=== PATIENT | female | born 2000 | race Caucasian/White ===

== ENCOUNTER 2019-06-14 01:31 | Emergency (ER) | payer BC, OTHER ==
[~2019-06-14] VITALS: Ht 170 cm; Wt 90.0 kg
[2019-06-14 02:54] LABS: BASOPHILS # (AUTO) 0.1 10^3/uL (0.0-0.1); BASOPHILS % (AUTO) 1 % (0-10); EOSINOPHILS # (AUTO) 0.2 10^3/uL (0.0-0.3); EOSINOPHILS % (AUTO) 2 % (0-10); HEMATOCRIT 41 % (35-52); HEMOGLOBIN 14.3 G/DL (11.5-16.0); LYMPHOCYTES # (AUTO) 3.6 X 10^3 (1.0-4.0); LYMPHOCYTES % (AUTO) 34 % (12-44); MEAN CORPUSCULAR HEMOGLOBIN 27 PG (25-34); MEAN CORPUSCULAR HGB CONC 35 G/DL (32-36); MEAN CORPUSCULAR VOLUME 79 FL (80-99); MEAN PLATELET VOLUME 9.9 FL (7.4-10.4); MONOCYTES # (AUTO) 0.8 X 10^3 (0.0-1.0); MONOCYTES % (AUTO) 8 % (0-12); NEUTROPHILS # (AUTO) 5.8 X 10^3 (1.8-7.8); NEUTROPHILS % (AUTO) 56 % (42-75); PLATELET COUNT 272 10^3/uL (130-400); RED CELL DISTRIBUTION WIDTH 14.3 % (10.0-14.5); WHITE BLOOD COUNT 10.4 10^3/uL (4.3-11.0)
[2019-06-14 03:04] LABS: BILIRUBIN,URINE NEGATIVE (NEGATIVE); CLARITY,URINE CLEAR; COLOR,URINE YELLOW; GLUCOSE, URINE (UA) NEGATIVE (NEGATIVE); KETONES,URINE NEGATIVE (NEGATIVE); LEUKOCYTE ESTERASE ,URINE NEGATIVE (NEGATIVE); NITRITE,URINE NEGATIVE (NEGATIVE); PROTEIN,URINE NEGATIVE (NEGATIVE)
[2019-06-14 03:05] LABS: ALANINE AMINOTRANSFERASE 17 U/L (0-55); ALBUMIN 4.5 GM/DL (3.2-4.5); ALKALINE PHOSPHATASE 66 U/L (40-136); AMYLASE 48 U/L (25-125); BILIRUBIN,TOTAL 0.7 MG/DL (0.1-1.0); BUN/CREATININE RATIO 11; CALCIUM 9.5 MG/DL (8.5-10.1); CARBON DIOXIDE 21 MMOL/L (21-32); CHLORIDE 109 MMOL/L (98-107); CREATININE SERUM 0.89 MG/DL (0.60-1.30); GFR ESTIMATED > 60; GLUCOSE 123 MG/DL (70-105); MAGNESIUM 1.7 MG/DL (1.6-2.4); POTASSIUM 3.2 MMOL/L (3.6-5.0); SODIUM 142 MMOL/L (135-145); TOTAL PROTEIN 7.2 GM/DL (6.4-8.2)
[2019-06-14 03:23] LABS: BACTERIA,URINE MODERATE /HPF; SQUAMOUS EPITHELIAL CELL,UR 0-2 /HPF
[2019-06-14] MEDS ORDERED: LACTATED RINGERS 1,000 ML IV ONE (03:26)
[2019-06-14] MEDS ORDERED: NS 100 ML (IVPB) BAG IV ONE (04:00)
[2019-06-14] MEDS ORDERED: HOLD METFORMIN - RECEIVED CONTRAST 20 ML VIAL IV SCH (04:00)
[2019-06-14] MEDS ORDERED: IOHEXOL 350 MG/ML 100 ML (OMNIPAQUE 350) VIAL IV ONE (04:00)
[2019-06-14] MEDS ORDERED: KETOROLAC 30 MG/ML VIAL IVP ONE (04:00)
[2019-06-14] MEDS ORDERED: ONDANSETRON 4 MG/2 ML (SDV) Z0FRAN IVP ONE (04:00)
--- NOTE | 2019-06-14 04:42 | ED Abdominal Pain ---
General Chief Complaint: Abdominal/GI Problems Stated Complaint: ABD PAIN, VOMIITNG, FEVER Source of Information: Patient History of Present Illness Date Seen by Provider: Jun 14, 2019 Time Seen by Provider: 02:40 Initial Comments PT ARRIVES VIA POV WITH FEMALE FRIENDS PT STATES "JUST MY APPENDIX IS BUGGING ME" C/O RLQ PAIN SINCE 1999 TONIGHT STATES PAIN BEGAN WHILE AT A [employer] TONIGHT STATES PAIN WAS IN EPIGASTRIC AREA INITIALLY AND WAS SHARP, AND PAIN HAS MOVED AROUND AND NOW IS IN RLQ AND IS JUST A DULL ACHE 30 MINUTES PRIOR TO ARRIVAL, SHE HAD NAUSEA AND VOMITED X 1--NO NAUSEA NOW ATE MEAL AT [employer] AT 0030 --DID NOT MAKE SYMPTOMS WORSE STATES LEANING ON HER RIGHT SIDE WORSENS PAIN, OTHERWISE NOTHING ELSE WORSENS PAIN. NOTHING IMPROVES PAIN, BUT HAS NOT TAKEN ANYTHING FOR PAIN. HAD DIARRHEA X 2-3 YESTERDAY BUT ATTRIBUTES THAT TO DRINKING HEAVILY THE NIGHT BEFORE. DENIES ANY ETOH TONIGHT NO URINARY SYMPTOMS NO VAGINAL DISCHARGE OR SPECIALTY FOODS COOK COMPLAINTS--LMP 1-2 WEEKS AGO, NORMAL. ON OCP'S STATES SHE HAD FEVER LAST SATURDAY AND WAS HAVING COLD SYMPTOMS AT THAT TIME, BUT NONE SINCE AND THOSE SYMPTOMS HAVE RESOLVED. STATES "I WAS HAVING APPENDIX PROBLEMS THIS SUMMER AND MY FRIEND'S SISTER IS A NURSE AND SHE TOLD ME IT HAD FOR SURE RUPTURED" --NEVER SOUGHT CARE AT ANY TIME. PCP: [facility] FROM [place], [place] Allergies and Home Medications Allergies Coded Allergies: No Known Drug Allergies (Unverified , 06/14/19) Home Medications Ketorolac Tromethamine 10 Mg Tablet, 10 MG PO Q6H Prescribed by: EMRE BRODY on 06/14/19523 Ondansetron 4 Mg Tab.rapdis, 4 MG PO Q4H Prescribed by: EMRE BRODY on 06/14/19523 Patient Home Medication List Home Medication List Reviewed: Yes Review of Systems Review of Systems Constitutional: no symptoms reported; No fever EENTM: No Symptoms Reported, See HPI Respiratory: No Symptoms Reported; Denies Cough Cardiovascular: No Symptoms Reported Gastrointestinal: See HPI, Abdominal Pain, Diarrhea, Nausea; Denies Poor Appetite, Denies Poor Fluid Intake; Vomiting Genitourinary: No Symptoms Reported; Denies Burning, Denies Discharge, Denies Drainage, Denies Frequency, Denies Flank Pain, Denies Hematuria, Denies Incontinence, Denies Pain, Denies Urgency Musculoskeletal: no symptoms reported; No back pain Skin: no symptoms reported Psychiatric/Neurological: No Symptoms Reported Endocrine: No Symptoms Reported Hematologic/Lymphatic: No Symptoms Reported Past Zdqquse-Cfsitd-Vqelrb Hx Patient Social History Alcohol Use: Regular Use (ONCE AWEEK) Recreational Drug Use: No Smoking Status: Never a Smoker Recent Foreign Travel: No Contact w/Someone Who Travel: No Recent Hopitalizations: No Physical Abuse: No Sexual Abuse: No Mistreated: No Fear: No Seasonal Allergies Seasonal Allergies: No Past Medical History Surgeries: No Respiratory: No Cardiac: No Neurological: No Reproductive Disorders: No Genitourinary: No Gastrointestinal: No Musculoskeletal: No Endocrine: No HEENT: No Cancer: No Psychosocial: No Integumentary: No Blood Disorders: No Physical Exam Vital Signs Vital Signs - First Documented 06/14/19 02:01 Temp 36.6 Pulse 81 Resp 20 B/P (MAP) 144/85 O2 Delivery Room Air Capillary Refill : Height/Weight/BMI Height: '" Weight: lbs. oz. kg; BMI Method: General Appearance: WD/WN, no apparent distress, other (SMILING, VERY TALKATIVE, WALKS UPRIGHT AND MOVES QUICKLY WITHOUT DIFFICULTY. DOES NOT APPEAR TO BE IN ANY DISCOMFORT OR DISTRESS. ) Neck: normal inspection Respiratory: normal breath sounds, no respiratory distress, no accessory muscle use Cardiovascular: regular rate, rhythm, no murmur Gastrointestinal: normal bowel sounds, soft, no organomegaly, no pulsatile mass; No distended, No guarding, No rebound; tenderness (MILD EPIGASTRIC TENDERNESS, MILD RLQ TENDERNESS, MILD SUPRAPUBIC TENDERNESS); No hernia, No mass Extremities: normal inspection Back: normal inspection, no CVA tenderness Neurologic/Psychiatric: package drier II-XII nml as tested, no motor/sensory deficits, alert, normal mood/affect, oriented x 3 Skin: normal color, warm/dry; No rash Progress/Results/Core Measures Results/Orders Lab Results Laboratory Tests Test 06/14/19 02:15 06/14/19 02:17 Range/Units White Blood Count 10.4 4.3-11.0 10^3/uL Red Blood Count 5.22 4.35-5.85 10^6/uL Hemoglobin 14.3 11.5-16.0 G/DL Hematocrit 41 35-52 % Mean Corpuscular Volume 79 L 80-99 FL Mean Corpuscular Hemoglobin 27 25-34 PG Mean Corpuscular Hemoglobin Concent 35 32-36 G/DL Red Cell Distribution Width 14.3 10.0-14.5 % Platelet Count 272 130-400 10^3/uL Mean Platelet Volume 9.9 7.4-10.4 FL Neutrophils (%) (Auto) 56 42-75 % Lymphocytes (%) (Auto) 34 12-44 % Monocytes (%) (Auto) 8 0-12 % Eosinophils (%) (Auto) 2 0-10 % Basophils (%) (Auto) 1 0-10 % Neutrophils # (Auto) 5.8 1.8-7.8 X 10^3 Lymphocytes # (Auto) 3.6 1.0-4.0 X 10^3 Monocytes # (Auto) 0.8 0.0-1.0 X 10^3 Eosinophils # (Auto) 0.2 0.0-0.3 10^3/uL Basophils # (Auto) 0.1 0.0-0.1 10^3/uL Sodium Level 142 135-145 MMOL/L Potassium Level 3.2 L 3.6-5.0 MMOL/L Chloride Level 109 H 98-107 MMOL/L Carbon Dioxide Level 21 21-32 MMOL/L Anion Gap 12 5-14 MMOL/L Blood Urea Nitrogen 10 7-18 MG/DL Creatinine 0.89 0.60-1.30 MG/DL Estimat Glomerular Filtration Rate > 60 BUN/Creatinine Ratio 11 Glucose Level 123 H 70-105 MG/DL Calcium Level 9.5 8.5-10.1 MG/DL Corrected Calcium 9.1 8.5-10.1 MG/DL Magnesium Level 1.7 1.6-2.4 MG/DL Total Bilirubin 0.7 0.1-1.0 MG/DL Aspartate Amino Transf (AST/SGOT) 15 5-34 U/L Alanine Aminotransferase (ALT/SGPT) 17 0-55 U/L Alkaline Phosphatase 66 40-136 U/L Total Protein 7.2 6.4-8.2 GM/DL Albumin 4.5 3.2-4.5 GM/DL Amylase Level 48 25-125 U/L Serum Test, Qualitative NEGATIVE NEGATIVE Urine Color YELLOW Urine Clarity CLEAR Urine pH 6.0 5-9 Urine Specific [place] >=1.030 1.016-1.022 Urine Protein NEGATIVE NEGATIVE Urine Glucose (UA) NEGATIVE NEGATIVE Urine Ketones NEGATIVE NEGATIVE Urine Nitrite NEGATIVE NEGATIVE Urine Bilirubin NEGATIVE NEGATIVE Urine Urobilinogen 0.2 < = 1.0 MG/DL Urine Leukocyte Esterase NEGATIVE NEGATIVE Urine RBC (Auto) NEGATIVE NEGATIVE Urine RBC NONE /HPF Urine WBC NONE /HPF Urine Squamous Epithelial Cells 0-2 /HPF Urine Crystals NONE /LPF Urine Bacteria MODERATE H /HPF Urine Casts NONE /LPF Urine Mucus NEGATIVE /LPF Urine Culture Indicated NO My Orders Orders - EMRE BRODY DO Ed Iv/Invasive Line Start (06/14/19 02:43) Amylase (06/14/19 02:43) Cbc With Automated Diff (06/14/19 02:43) Comprehensive Metabolic Panel (06/14/19 02:43) Hcg,Qualitative Serum (06/14/19 02:43) Magnesium (06/14/19 02:43) Ua Culture If Indicated (06/14/19 02:43) Ct Abd/Pelv W (Appendicitis) (06/14/19 03:26) Acute Abd Series (06/14/19 03:26) Ed Iv/Invasive Line Start (06/14/19 03:26) Ed Iv/Invasive Line Start (06/14/19 03:26) Lactated Ringers (Lr 1000 Ml Iv Solution (06/14/19 03:26) Ondansetron Injection (Zofran Injectio (06/14/19 04:00) Ketorolac Injection (Toradol Injection) (06/14/19 04:00) Iohexol Injection (Omnipaque 350 Mg/Ml 1 (06/14/19 04:00) Received Contrast (Hold Metformin- Contr (06/14/19 04:00) Ns (Ivpb) (Sodium Chloride 0.9% Ivpb Bag (06/14/19 04:00) Medications Given in ED Current Medications Medications Dose Ordered Sig/Veronika Route Start Time Stop Time Status Last Admin Dose Admin Iohexol 100 ml ONCE ONCE IV 06/14/19 04:00 06/14/19 04:02 DC 06/14/19 04:02 100 ML Ketorolac Tromethamine 30 mg ONCE ONCE IVP 06/14/19 04:00 06/14/19 04:01 DC 06/14/19 04:21 30 MG Lactated Ringer's 1,000 ml @ 0 mls/hr Q0M ONCE IV 06/14/19 03:26 06/14/19 03:28 DC 06/14/19 03:41 1,000 MLS/HR Ondansetron HCl 4 mg ONCE ONCE IVP 06/14/19 04:00 06/14/19 04:01 DC 06/14/19 04:21 4 MG Sodium Chloride 100 ml ONCE ONCE IV 06/14/19 04:00 06/14/19 04:02 DC 06/14/19 04:03 80 ML Vital Signs/I&O 06/14/19 02:01 Temp 36.6 Pulse 81 Resp 20 B/P (MAP) 144/85 O2 Delivery Room Air Progress Progress Note : Progress Note LAUGHING WITH FRIENDS THROUGHOUT ER STAY GIVEN ZOFRAN AND TORADOL --PAIN FREE AT DISMISSAL. AT DISMISSAL STATES, "IT ONLY REALLY WAS HURTING WHEN I WOULD BREATHE OUT". Diagnostic Imaging Comments ABDOMEN XRAYS--NO ACUTE PROCESS, PENDING RADIOLOGIST REVIEW CT ABDOMEN/PELVIS--NO ACUTE PROCESS, PER [facility] VIA FAX AT [id number] Reviewed: Reviewed by Me Departure Impression Primary Impression: RLQ abdominal pain Disposition: HOME, SELF-CARE Condition: Improved Departure-Patient Inst. Referrals: NO,LOCAL PHYSICIAN (PCP) Primary Care Physician NAEL SAXENA MD Patient Instructions: Acute Abdomen (Belly Pain), Child (DC) Add. Discharge Instructions: LOTS OF CLEAR LIQUIDS--WATER, BROTH, JELLO, GATORADE NO ALCOHOL BLAND DIET--RICE, TOAST, SALTINES, APPLESAUCE FOLLOW UP WITH [facility] IN 2-3 DAYS IF NO BETTER All discharge instructions reviewed with patient and/or family. Voiced understanding. Scripts Ketorolac Tromethamine (Ketorolac Tromethamine) 10 Mg Tablet 10 MG PO Q6H for Pain, #8 TAB Prov: EMRE BRODY DO 06/14/19 Ondansetron (Ondansetron Odt) 4 Mg Tab.rapdis 4 MG PO Q4H for Nausea/Vomiting, #10 TAB Prov: EMRE BRODY DO 06/14/19 EMRE BRODY DO Jun 14, 2019 04:42 POS
[2019-06-14] MEDS ORDERED: KETO10TA PO (05:24)
[2019-06-14] MEDS ORDERED: ONDA4TAB11 PO (05:24)
--- NOTE | 2019-06-14 06:35 | Diagnostic Imaging Report ---
PROCEDURE: CT abdomen and pelvis with contrast, rule out appendicitis. TECHNIQUE: Multiple contiguous axial images were obtained through the abdomen and pelvis after the administration of intravenous contrast. INDICATION: Abdominal pain, vomiting, and fever FINDINGS: The liver, gallbladder, bile ducts, spleen, adrenals, and pancreas unremarkable. The unobstructed kidneys nonfocal and nonacute. The air-containing appendix is visualized off the caudal pole of the cecum and appeared normal. The uterus, adnexa and urinary bladder unremarkable. There is no diverticulitis. There is no bowel, biliary or urinary tract obstruction. No ascites, abscess, hematoma or other fluid collection. No pneumatosis or free gas. No focal inflammatory process. The lung bases in the osseous structures appeared normal. IMPRESSION: Unobstructed urinary tracts. Normal appendix. No adnexal abnormality. No acute finding. Dictated by: Dictated on workstation # [id number]
--- NOTE | 2019-06-14 07:14 | Diagnostic Imaging Report ---
INDICATION: Pain, vomiting and fever FINDINGS: The lungs are clear. There is no effusion or pneumothorax. No abnormal fecal loading. No suspicious calcifications. No evidence for obstruction. No free air. IMPRESSION: No acute finding identified. Dictated by: Dictated on workstation # [id number]
== END 2019-06-14 05:38 | disposition home or self-care (01) ==
LOC: ER 01:33
DX: R10.31 Right lower quadrant pain (principal)
CPT/HCPCS: 36415; 74022; 74177; 80053; 81000; 82150; 83735; 84703; 85025; 96361; 96374; 96375